=== PATIENT | female | born 1970 | race American Indian/Alaskan Native ===

== ENCOUNTER 2017-06-12 14:39 | Inpatient (IN) | payer BC ==
[2017-06-12] MEDS ORDERED: LACTATED RINGERS 500 ML IV ONE (15:59)
[2017-06-12] MEDS: CELESTONE SOLUSPAN IM SCH (16:00)
[2017-06-12] MEDS ORDERED: COLACE PO PRN (16:13)
[2017-06-12] MEDS ORDERED: AMBIEN PO PRN (16:13)
[2017-06-12] MEDS ORDERED: ZOFRAN IV PRN (16:13)
[2017-06-12] MEDS ORDERED: TYLENOL PO PRN (16:13)
--- NOTE | 2017-06-12 16:23 | History and Physical Report ---
History of Present Illness Date of examination: 06/12/17 (pt sent over from [facility] office; received call from Dr.Yeagley nasra Zaragoza in their office) History of present illness: EDC Calculations LMP: 08/06/2017 Past History : 8 Para: 5 Aborta: 2 Elect. Ab: 1 Spont. Ab: 1 # 1 Delivery date: 1986 Delivery type: EAB # 2 Delivery date: 11/09/1989 Weeks Gestation: 39 Delivery type: Anesthesia type: none Delivery location: [place] [facility] Sex: Female weight: 6-6 Name: Giselle # 3 Delivery date: 03/13/1996 Weeks Gestation: 39 labor: no Delivery type: Hours of labor: 12 Anesthesia type: epidural Delivery location: [place] Sex: Female weight: 7-3 Name: Gabriel # 4 Delivery date: 10/25/1999 Weeks Gestation: 40 labor: no Delivery type: Hours of labor: 7 Anesthesia type: epidural Delivery location: [place] [facility] Sex: Female weight: 7-7 Name: Erica # 5 Delivery date: 06/06/2001 Weeks Gestation: 38 Delivery type: Hours of labor: 10 Anesthesia type: epidural Delivery location: [place] [facility] Sex: Male weight: 8-0 Name: Comments: SROM NRFHT # 6 Delivery date: 10/27/2009 Weeks Gestation: 37 Delivery type: Anesthesia type: spinal Delivery location: [facility] Sex: Female weight: 7-6 Name: Mishel Comments: elevated BP # 7 Delivery date: 05/29/2016 Delivery type: SAB Comments: No D&C Past Medical History: Anxiety Asthma Colon Cancer (06/2016) s/p 2 rons of chemotherapy 07/2016 and 08/2016 Past Surgical History: D&C: (1986) (2000) (2009) Family History Summary: Other family member - Has No Family History of Colon Cancer - Entered On: 2016 Other family member - Has No Family History of Breast Cancer - Entered On: 2016 Other family member - Has Family History of Stomach Cancer - Entered On: 2016 Other family member - Has Family History of Prostate Cancer - Entered On: 2016 Other family member - Has Family History of Hypertension - Entered On: 12/17/2016 Other family member - Has Family History of Diabetes - Entered On: 12/17/2016 Social History: Patient is [facility] Risk Factors: Smoked Tobacco Use: Never smoker Drug use: no Alcohol use: yes Drinks per day: social Dietary Counseling: pn yes Past Medical History 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 of genital herpes: no Partner hx. of genital herpes: no Genetic History ADVANCED MATERNAL AGE Congenital Heart Defect: Mom: no Dad: no Burton Disease: Mom: no Dad: no Thalassemia Mom: no Dad: no Neural Tube Defect Mom: no Dad: no Down's Syndrome Mom: no Dad: no Fran-Sachs Mom: no Dad: no Sickle Cell Disease/Trait Mom: no Dad: no Hemophilia Mom: no Dad: no Muscular Dystrophy Mom: no Dad: no Cystic Fibrosis Mom: no Dad: no [place] Chorea Mom: no Dad: no Mental Retardation Mom: no Dad: no Fragile X Mom: no Dad: no Other Genetic/Chromosomal Disorder Mom: no Dad: no Child w/other defect Mom: no Dad: no Enviromental Exposures Xray Exposure: no Active Medications (reviewed today): SILYMARIN ORAL CAPS (MILK THISTLE-TURMERIC) ALBUTEROL SULFATE 1.25 MG/3ML INH NEBU (ALBUTEROL SULFATE) ONE DAILY TABS ( VIT-FE FUMARATE-FA TABS) ALEVE TABS (NAPROXEN SODIUM TABS) Current Allergies (reviewed today): No known allergies Laboratory Results Date/Time Collected: 12/17/2016 Routine Urinalysis Protein: Negative Glucose: Negative Urine HCG: positive Review of Systems General Complains of fatigue. Denies fever, chills, sweats, anorexia, weakness, malaise, weight loss and sleep disorder. Complains of abnormal vaginal bleeding and pelvic pain. Denies vaginal discharge, incontinence, dysuria, hematuria, urinary frequency, amenorrhea, menorrhagia, genital sores, decreased libido, painful periods, painful sex, urinary urgency, hot flashes, vaginal dryness, vaginal itching and vaginal odor. CV Denies chest pains, palpitations, syncope, dyspnea on exertion, orthopnea, PND and peripheral edema. Resp Denies cough, dyspnea at rest, excessive sputum, hemoptysis, wheezing and pleurisy. GI Complains of nausea. Denies vomiting, diarrhea, constipation, change in bowel habits, abdominal pain, melena, hematochezia, jaundice, gas/bloating, indigestion/heartburn, dysphagia and odynophagia. Breast Complains of breast pain. Denies left breast lump, right breast lump, nipple discharge, bloody discharge from nipple, abnormal mammogram and breast enlargement. Psych Denies depression, anxiety, irritability and mood swings. PHYSICAL EXAM HEENT: normocephalic, no lesions or deformities Neck/Thyroid: supple, thyroid normal Skin no significant abnormal lesions or rashes Chest: respiratory effort normal, clear to auscultation Breasts: skin/areolae normal, no masses, no nipple discharge, no erythema/warmth /tenderness, and axillae normal. CV: regular, normal S1-S2, no murmur, no rub, no gallop Abdomen: obese normal bowel sounds, soft, nontender, no HSM Well healed pfannenstiel scar Musculoskeletal: grossly normal ROM in joints, no joint tenderness or muscle weakness Neuro: no gross anomalities Extremities: no clubbing, cyanosis, or edema Past History - Obstetrical History Expected Date of Delivery: 08/07/17 Actual Gestation: 32 Week(s) 0 Day(s) : 8 Para: 5 Hx # Term Pregnancies: 5 Induced : 2 Number of Living Children: 5 Medications and Allergies Allergies Allergy/AdvReac Type Severity Reaction Status Date / Time No Known Allergies Allergy Unverified 06/12/17 14:40 Active Meds: Active Medications Acetaminophen (Tylenol) 650 mg PO Q4H PRN PRN Reason: Pain MILD(1-3)/Fever >100.5/RODAS Docusate Sodium (Colace) 100 mg PO Q12H PRN PRN Reason: Constipation Hydralazine HCl (Apresoline) 5 mg IV Q30MIN PRN PRN Reason: Hypertension Lactated Ringer's (Lactated Ringers) 500 mls @ 999 mls/hr IV BOLUS ONE Stop: 06/12/17 16:29 Lactated Ringer's (Lactated Ringers) 1,000 mls @ 125 mls/hr IV DIRECT ALEX Labetalol HCl (Normodyne) 200 mg PO BID ALEX Multivitamins/Iron/Calcium ( Vitamin) 1 each PO QDAY [facility] Ondansetron HCl (Zofran) 4 mg IV Q6H PRN PRN Reason: Nausea And Vomiting Zolpidem Tartrate (Ambien) 10 mg PO ONCE PRN PRN Reason: Sleep - Vital Signs Vital signs: Vital Signs Temp Resp 97.7 F 18 06/12/17 15:40 06/12/17 15:40 Temp Pulse Resp BP Pulse Ox 97.7 F 83 18 159/91 06/12/17 15:40 06/12/17 16:08 06/12/17 15:40 06/12/17 16:08 - Physical Exam Breasts: Positive: deferred Cardiovascular: Regular rate, Normal S1, Normal S2 Lungs: Positive: Normal air movement Abdomen: Positive: normal appearance, soft, normal bowel sounds. Negative: distention, tenderness Genitourinary (Female): Positive: normal external genitalia Vulva: both: normal Vagina: Positive: normal moisture. Negative: discharge Cervix: Negative: lesion, discharge Uterus: Positive: normal size, normal contour Adnexa: both: normal Anus/Rectum: Positive: normal perianal skin, heme negative. Negative: rectal mass, hemorrhoids Extremities: Positive: edema Deep Tendon Reflex Grade: Normal but brisk +3 - Obstetrical FHR: category 1 Uterine Contraction Pattern: Absent Uterine Tone Measurement Phase: Resting Results Result Diagrams: 06/12/17 16:10 06/12/17 16:10 All other labs normal. HBsAg Screen Negative Negative *1 Rubella Antibodies, IgG 8.07 index Immune >0.99 *2 Non-immune <0.90 Equivocal 0.90 - 0.99 Immune >0.99 ABO Grouping A *3 Rh Factor Positive *4 Please note: Prior records for this patient's ABO / Rh type are not available for additional verification. Antibody Screen Negative Negative *5 RPR Non Reactive Non Reactive *6 WBC 6.8 x10E3/uL 3.4-10.8 *7 RBC [L] 3.71 x10E6/uL 3.77-5.28 *8 Hemoglobin [L] 10.1 g/dL 11.1-15.9 *9 Hematocrit [L] 32.1 % 34.0-46.6 *10 MCV 87 fL 79-97 *11 MCH 27.2 pg 26.6-33.0 *12 MCHC 31.5 g/dL 31.5-35.7 *13 RDW [H] 15.5 % 12.3-15.4 *14 Platelets [H] 381 x10E3/uL 150-379 *15 Neutrophils 66 % *16 Lymphs 26 % *17 Monocytes 7 % *18 Eos 1 % *19 Basos 0 % *20 ! Immature Cells <No Reported Value> *21 Neutrophils (Absolute) 4.5 x10E3/uL 1.4-7.0 *22 Lymphs (Absolute) 1.8 x10E3/uL 0.7-3.1 *23 Monocytes(Absolute) 0.5 x10E3/uL 0.1-0.9 *24 Eos (Absolute) 0.1 x10E3/uL 0.0-0.4 *25 Baso (Absolute) 0.0 x10E3/uL 0.0-0.2 *26 ! Immature Granulocytes 0 % *27 ! Immature Grans (Abs) 0.0 x10E3/uL 0.0-0.1 *28 ! NRBC <No Reported Value> *29 Hematology Comments: <No Reported Value> *30 Tests: (2) Cystic Fibrosis Profile (487026) ! CF, Screen Comment: *31 RESULTS: Negative for 32 mutations analyzed Tests: (3) HB Solu + Rflx [facility] ([id number]) Hemoglobin (Hgb) Solubility Negative Negative *33 Tests: (4) Panel 953443 ([id number]) HIV Screen 4th Generation wRfx Non Reactive Non Reactive *34 Tests: (5) HCV Ab w/Rflx to Verification ([id number]) ! HCV Ab 0.2 s/co ratio 0.0-0.9 *35 Tests: (6) Comment: ([id number]) ! Comment: SPRCS *36 Non reactive HCV antibody screen is consistent with no HCV infection, unless recent infection is suspected or other evidence exists to indicate HCV infection. Assessment and Plan - Patient Problems (1) Hypertension, essential, complicating Onset Date: ~06/12/17 Current Visit: Yes Status: Acute Qualifiers: Trimester: third trimester Qualified Code(s): O10.013 - Pre-existing essential hypertension complicating , third trimester Plan to address problem: Pt sent from [facility] for evaluation of elevated BPs Pt to be admitted overnight to collect 24hr urine and has Labetalol 200mg po BID Apresoline for BP >160/100. aware of pt and agrees with POC (2) 32 weeks gestation of Onset Date: ~06/12/17 Current Visit: Yes Status: Acute Plan to address problem: 46yo @ 32 weeks with essential htn Being evaled for PreE Steroids ordered Start now second dose 24 hours Consult placed for [facility] Pt agrees with this POC All questions addressed
[2017-06-12 16:27] LABS: Hematocrit 30.8 % (30.3-42.9); Hemoglobin 10.3 gm/dl (10.1-14.3); Mean Corpuscular HGB Conc 33 % (30-34); Mean Corpuscular Hemoglobin 30 pg (28-32); Mean Corpuscular Volume 88 fl (79-97); Platelet Count 280 K/mm3 (140-440); Red Blood Count 3.49 M/mm3 (3.65-5.03); Red Cell Distribution Width 15.2 % (13.2-15.2); White Blood Count 6.5 K/mm3 (4.5-11.0)
[2017-06-12 16:36] LABS: Bacteria,Urine 1+ /HPF (Negative); Bilirubin,Urine NEG (Negative); Blood,Urine NEG (Negative); Ketones,Urine 20 mg/dL (Negative); Leukocyte Esterase,Urine MOD (Negative); Mucus,Urine FEW /HPF; Nitrite,Urine NEG (Negative); Renal Epithelial Cells,Urine 1 /LPF; Urobilinogen,Urine < 2.0 mg/dL (<2.0)
[2017-06-12 16:46] LABS: Alanine Aminotransferase 34 units/L (7-56); Lactate Dehydrogenase 177 units/L (91-180); Uric Acid 5.5 mg/dL (3.5-7.6)
[2017-06-12] MEDS: APRESOLINE IV PRN (17:01)
[2017-06-12] MEDS: LACTATED RINGERS 1,000 ML IV SCH (17:03)
[2017-06-12] MEDS: NORMODYNE PO SCH (21:51)
[2017-06-13] MEDS: APRESOLINE IV PRN (04:41)
--- NOTE | 2017-06-13 08:17 | Consultation ---
Past History - Obstetrical History : 8 Medications and Allergies Allergies Allergy/AdvReac Type Severity Reaction Status Date / Time No Known Allergies Allergy Unverified 06/12/17 14:40 Active Meds: Active Medications Acetaminophen (Tylenol) 650 mg PO Q4H PRN PRN Reason: Pain MILD(1-3)/Fever >100.5/RODAS Betamethasone Acet/Betameth SodPhos (Cel[place] Soluspan) 12 mg IM Q24H ALEX Stop: 06/13/17 18:01 Last Admin: 06/12/17 16:00 Dose: 12 mg Docusate Sodium (Colace) 100 mg PO Q12H PRN PRN Reason: Constipation Hydralazine HCl (Apresoline) 5 mg IV Q30MIN PRN PRN Reason: Hypertension Last Admin: 06/13/17 04:41 Dose: 5 mg Lactated Ringer's (Lactated Ringers) 1,000 mls @ 125 mls/hr IV DIRECT ALEX Last Admin: 06/12/17 17:03 Dose: 125 mls/hr Labetalol HCl (Normodyne) 200 mg PO BID [facility] Last Admin: 06/12/17 21:51 Dose: 200 mg Multivitamins/Iron/Calcium ( Vitamin) 1 each PO QDAY ALEX Ondansetron HCl (Zofran) 4 mg IV Q6H PRN PRN Reason: Nausea And Vomiting Zolpidem Tartrate (Ambien) 10 mg PO ONCE PRN PRN Reason: Sleep Last Admin: 06/12/17 21:51 Dose: 10 mg - Vital Signs Vital signs: Vital Signs Temp Resp 97.7 F 18 06/12/17 15:40 06/12/17 15:40 Temp Pulse Resp BP Pulse Ox 97.2 F L 90 20 157/79 96 06/13/17 07:56 06/13/17 08:18 06/13/17 07:56 06/13/17 08:03 06/13/17 08:18 Results Result Diagrams: 06/12/17 16:10 06/12/17 16:10 Abnormal lab results 06/12/17 06/12/17 06/12/17 Range/Units 15:50 16:10 16:10 RBC 3.49 L (3.65-5.03) M/mm3 Creatinine 0.6 L (0.7-1.2) mg/dL Urine WBC (Auto) 26.0 H (0.0-6.0) /HPF U Epithel Cells (Auto) 27.0 H (0-13.0) /HPF All other labs normal. Assessment and Plan [facility] Pt seen for consult Report to follow FW
[2017-06-13] MEDS ORDERED: PROAIR IH PRN (08:38)
--- NOTE | 2017-06-13 08:38 | Progress Note ---
Assessment and Plan - Patient Problems (1) Hypertension, essential, complicating Onset Date: ~06/12/17 Current Visit: Yes Status: Acute Qualifiers: Trimester: third trimester Qualified Code(s): O10.013 - Pre-existing essential hypertension complicating , third trimester Plan to address problem: ongoing 24hr urine Results pending completion Pt seen by AMFM this AM (2) 32 weeks gestation of Onset Date: ~06/12/17 Current Visit: Yes Status: Acute Plan to address problem: Pt has received Hydralizine X 1 dose over night BP now 130-140/70-80 Will continue Labetalol 200mg po BID P: pending completion and results of 24hr urine Continue POC Subjective - Subjective Date of service: 06/13/17 (Resting w/o complaint) Principal diagnosis: IUP @ 32w1d; ?PreE Interval history: EDC Calculations LMP: 08/06/2017 Past History : 8 Para: 5 Aborta: 2 Elect. Ab: 1 Spont. Ab: 1 # 1 Delivery date: 1986 Delivery type: EAB # 2 Delivery date: 11/09/1989 Weeks Gestation: 39 Delivery type: Anesthesia type: none Delivery location: [place] Sex: Female weight: 6-6 Name: Giselle # 3 Delivery date: 03/13/1996 Weeks Gestation: 39 labor: no Delivery type: Hours of labor: 12 Anesthesia type: epidural Delivery location: [place] Sex: Female weight: 7-3 Name: Gabriel # 4 Delivery date: 10/25/1999 Weeks Gestation: 40 labor: no Delivery type: Hours of labor: 7 Anesthesia type: epidural Delivery location: [place] Infant Sex: Female weight: 7-7 Name: Erica # 5 Delivery date: 06/06/2001 Weeks Gestation: 38 Delivery type: Hours of labor: 10 Anesthesia type: epidural Delivery location: [place] Sex: Male weight: 8-0 Name: Comments: SROM NRFHT # 6 Delivery date: 10/27/2009 Weeks Gestation: 37 Delivery type: Anesthesia type: spinal Delivery location: [facility] Infant Sex: Female weight: 7-6 Name: Mishel Comments: elevated BP # 7 Delivery date: 05/29/2016 Delivery type: SAB Comments: No D&C Past Medical History: Anxiety Asthma Colon Cancer (06/2016) s/p 2 rons of chemotherapy 07/2016 and 08/2016 Past Surgical History: D&C: (1986) (2000) (2009) Family History Summary: Other family member - Has No Family History of Colon Cancer - Entered On: 2016 Other family member - Has No Family History of Breast Cancer - Entered On: 2016 Other family member - Has Family History of Stomach Cancer - Entered On: 2016 Other family member - Has Family History of Prostate Cancer - Entered On: 2016 Other family member - Has Family History of Hypertension - Entered On: 12/17/2016 Other family member - Has Family History of Diabetes - Entered On: 12/17/2016 Social History: Patient is [facility] Risk Factors: Smoked Tobacco Use: Never smoker Drug use: no Alcohol use: yes Drinks per day: social Dietary Counseling: pn yes Past 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 of genital herpes: no Partner hx. of genital herpes: no Genetic History ADVANCED MATERNAL AGE Congenital Heart Defect: Mom: no Dad: no Burton Disease: Mom: no Dad: no Thalassemia Mom: no Dad: no Neural Tube Defect Mom: no Dad: no Down's Syndrome Mom: no Dad: no Fran-Sachs Mom: no Dad: no Sickle Cell Disease/Trait Mom: no Dad: no Hemophilia Mom: no Dad: no Muscular Dystrophy Mom: no Dad: no Cystic Fibrosis Mom: no Dad: no [place] Chorea Mom: no Dad: no Mental Retardation Mom: no Dad: no Fragile X Mom: no Dad: no Other Genetic/Chromosomal Disorder Mom: no Dad: no Child w/other defect Mom: no Dad: no Enviromental Exposures Xray Exposure: no Active Medications (reviewed today): SILYMARIN ORAL CAPS (MILK THISTLE-TURMERIC) ALBUTEROL SULFATE 1.25 MG/3ML INH NEBU (ALBUTEROL SULFATE) ONE DAILY TABS ( VIT-FE FUMARATE-FA TABS) ALEVE TABS (NAPROXEN SODIUM TABS) Current Allergies (reviewed today): No known allergies Laboratory Results Date/Time Collected: 12/17/2016 Routine Urinalysis Protein: Negative Glucose: Negative Urine HCG: positive Review of Systems General Complains of fatigue. Denies fever, chills, sweats, anorexia, weakness, malaise, weight loss and sleep disorder. Complains of abnormal vaginal bleeding and pelvic pain. Denies vaginal discharge, incontinence, dysuria, hematuria, urinary frequency, amenorrhea, menorrhagia, genital sores, decreased libido, painful periods, painful sex, urinary urgency, hot flashes, vaginal dryness, vaginal itching and vaginal odor. CV Denies chest pains, palpitations, syncope, dyspnea on exertion, orthopnea, PND and peripheral edema. Resp Denies cough, dyspnea at rest, excessive sputum, hemoptysis, wheezing and pleurisy. GI Complains of nausea. Denies vomiting, diarrhea, constipation, change in bowel habits, abdominal pain, melena, hematochezia, jaundice, gas/bloating, indigestion/heartburn, dysphagia and odynophagia. Breast Complains of breast pain. Denies left breast lump, right breast lump, nipple discharge, bloody discharge from nipple, abnormal mammogram and breast enlargement. Psych Denies depression, anxiety, irritability and mood swings. PHYSICAL EXAM HEENT: normocephalic, no lesions or deformities Neck/Thyroid: supple, thyroid normal Skin no significant abnormal lesions or rashes Chest: respiratory effort normal, clear to auscultation Breasts: skin/areolae normal, no masses, no nipple discharge, no erythema/warmth /tenderness, and axillae normal. CV: regular, normal S1-S2, no murmur, no rub, no gallop Abdomen: obese normal bowel sounds, soft, nontender, no HSM Well healed pfannenstiel scar Musculoskeletal: grossly normal ROM in joints, no joint tenderness or muscle weakness Neuro: no gross anomalities Extremities: no clubbing, cyanosis, or edema Patient reports: movement normal Objective - Vital Signs Vital Signs: Vital Signs - 12hr 06/12/17 06/12/17 06/12/17 21:31 21:51 21:53 Temperature Pulse Rate 81 82 82 Respiratory Rate Blood Pressure 157/75 159/73 159/73 Blood Pressure [Right] O2 Sat by Pulse Oximetry 06/12/17 06/12/17 06/12/17 22:32 23:31 23:48 Temperature Pulse Rate 82 82 85 Respiratory Rate Blood Pressure 126/61 140/84 Blood Pressure [Right] O2 Sat by Pulse 98 Oximetry 06/12/17 06/13/17 06/13/17 23:51 00:32 02:21 Temperature 98.0 F Pulse Rate 92 H 90 84 Respiratory 18 Rate Blood Pressure 158/85 154/80 Blood Pressure 158/85 [Right] O2 Sat by Pulse 98 95 Oximetry 06/13/17 06/13/17 06/13/17 02:26 02:29 02:31 Temperature Pulse Rate 92 H 90 88 Respiratory Rate Blood Pressure Blood Pressure [Right] O2 Sat by Pulse 98 91 94 Oximetry 06/13/17 06/13/17 06/13/17 02:32 02:36 02:41 Temperature Pulse Rate 92 H 92 H 87 Respiratory Rate Blood Pressure 155/74 Blood Pressure [Right] O2 Sat by Pulse 95 93 Oximetry 06/13/17 06/13/17 06/13/17 02:46 02:51 02:56 Temperature Pulse Rate 88 88 94 H Respiratory Rate Blood Pressure Blood Pressure [Right] O2 Sat by Pulse 92 92 91 Oximetry 06/13/17 06/13/17 06/13/17 03:01 03:03 03:06 Temperature Pulse Rate 95 H 93 H 85 Respiratory Rate Blood Pressure Blood Pressure [Right] O2 Sat by Pulse 96 94 94 Oximetry 06/13/17 06/13/17 06/13/17 03:08 03:11 03:14 Temperature Pulse Rate 85 84 85 Respiratory Rate Blood Pressure Blood Pressure [Right] O2 Sat by Pulse 94 96 94 Oximetry 06/13/17 06/13/17 06/13/17 03:16 03:20 03:21 Temperature Pulse Rate 84 84 83 Respiratory Rate Blood Pressure Blood Pressure [Right] O2 Sat by Pulse 94 94 95 Oximetry 06/13/17 06/13/17 06/13/17 03:25 03:26 03:30 Temperature Pulse Rate 86 83 87 Respiratory Rate Blood Pressure Blood Pressure [Right] O2 Sat by Pulse 94 94 94 Oximetry 06/13/17 06/13/17 06/13/17 03:31 03:32 03:36 Temperature Pulse Rate 85 86 84 Respiratory Rate Blood Pressure 157/77 Blood Pressure [Right] O2 Sat by Pulse 92 96 Oximetry 06/13/17 06/13/17 06/13/17 03:40 03:41 03:46 Temperature Pulse Rate 86 84 84 Respiratory Rate Blood Pressure Blood Pressure [Right] O2 Sat by Pulse 94 96 95 Oximetry 06/13/17 06/13/17 06/13/17 03:49 03:51 03:56 Temperature Pulse Rate 85 85 85 Respiratory Rate Blood Pressure Blood Pressure [Right] O2 Sat by Pulse 94 95 94 Oximetry 06/13/17 06/13/17 06/13/17 04:01 04:06 04:11 Temperature Pulse Rate 84 83 82 Respiratory Rate Blood Pressure Blood Pressure [Right] O2 Sat by Pulse 94 95 95 Oximetry 06/13/17 06/13/17 06/13/17 04:15 04:16 04:21 Temperature 98.1 F Pulse Rate 84 82 94 H Respiratory 22 Rate Blood Pressure 160/81 Blood Pressure [Right] O2 Sat by Pulse 94 95 96 Oximetry 06/13/17 06/13/17 06/13/17 04:26 04:31 04:36 Temperature Pulse Rate 84 94 H 85 Respiratory Rate Blood Pressure 161/89 Blood Pressure [Right] O2 Sat by Pulse 97 94 97 Oximetry 06/13/17 06/13/17 06/13/17 04:41 04:46 04:51 Temperature Pulse Rate 87 89 93 H Respiratory Rate Blood Pressure 166/95 Blood Pressure [Right] O2 Sat by Pulse 97 97 98 Oximetry 06/13/17 06/13/17 06/13/17 04:52 04:56 04:58 Temperature Pulse Rate 98 H 95 H 92 H Respiratory Rate Blood Pressure 172/105 147/80 Blood Pressure [Right] O2 Sat by Pulse 93 96 94 Oximetry 06/13/17 06/13/17 06/13/17 05:01 05:06 05:07 Temperature Pulse Rate 94 H 89 88 Respiratory Rate Blood Pressure 137/71 143/73 Blood Pressure [Right] O2 Sat by Pulse 95 97 93 Oximetry 06/13/17 06/13/17 06/13/17 05:11 05:13 05:16 Temperature Pulse Rate 91 H 91 H 91 H Respiratory Rate Blood Pressure 130/70 Blood Pressure [Right] O2 Sat by Pulse 97 92 100 Oximetry 06/13/17 06/13/17 06/13/17 05:21 05:32 05:37 Temperature Pulse Rate 100 H 93 H 89 Respiratory Rate Blood Pressure Blood Pressure [Right] O2 Sat by Pulse 98 100 100 Oximetry 06/13/17 06/13/17 06/13/17 05:42 05:44 05:46 Temperature Pulse Rate 94 H 101 H 90 Respiratory Rate Blood Pressure 141/80 Blood Pressure [Right] O2 Sat by Pulse 100 92 Oximetry 06/13/17 06/13/17 06/13/17 05:47 05:52 05:53 Temperature Pulse Rate 88 88 87 Respiratory Rate Blood Pressure Blood Pressure [Right] O2 Sat by Pulse 100 100 0 L Oximetry 06/13/17 06/13/17 06/13/17 05:57 05:58 06:02 Temperature Pulse Rate 93 H 91 H 91 H Respiratory Rate Blood Pressure 156/70 Blood Pressure [Right] O2 Sat by Pulse 100 0 L 32 L Oximetry 06/13/17 06/13/17 06/13/17 06:06 06:07 06:12 Temperature Pulse Rate 94 H 89 94 H Respiratory Rate Blood Pressure Blood Pressure [Right] O2 Sat by Pulse 0 L 100 100 Oximetry 06/13/17 06/13/17 06/13/17 06:14 06:16 06:17 Temperature Pulse Rate 90 91 H 91 H Respiratory Rate Blood Pressure 151/68 Blood Pressure [Right] O2 Sat by Pulse 90 100 Oximetry 06/13/17 06/13/17 06/13/17 06:20 06:22 06:27 Temperature Pulse Rate 95 H 94 H 91 H Respiratory Rate Blood Pressure Blood Pressure [Right] O2 Sat by Pulse 94 99 100 Oximetry 06/13/17 06/13/17 06/13/17 06:31 06:32 06:37 Temperature Pulse Rate 82 88 86 Respiratory Rate Blood Pressure 136/84 Blood Pressure [Right] O2 Sat by Pulse 75 L 99 100 Oximetry 06/13/17 06/13/17 06/13/17 06:42 06:44 06:47 Temperature Pulse Rate 89 48 L 94 H Respiratory Rate Blood Pressure 138/74 Blood Pressure [Right] O2 Sat by Pulse 99 93 98 Oximetry 06/13/17 06/13/17 06/13/17 06:52 06:57 07:00 Temperature Pulse Rate 95 H 93 H 93 H Respiratory Rate Blood Pressure 135/76 Blood Pressure [Right] O2 Sat by Pulse 100 96 Oximetry 06/13/17 06/13/17 06/13/17 07:02 07:08 07:13 Temperature Pulse Rate 92 H 91 H 88 Respiratory Rate Blood Pressure Blood Pressure [Right] O2 Sat by Pulse 100 100 98 Oximetry 06/13/17 06/13/17 06/13/17 07:17 07:18 07:23 Temperature Pulse Rate 88 89 92 H Respiratory Rate Blood Pressure 142/63 Blood Pressure [Right] O2 Sat by Pulse 100 100 Oximetry 06/13/17 06/13/17 06/13/17 07:28 07:32 07:33 Temperature Pulse Rate 89 93 H 99 H Respiratory Rate Blood Pressure 149/76 Blood Pressure [Right] O2 Sat by Pulse 100 100 Oximetry 06/13/17 06/13/17 06/13/17 07:38 07:43 07:46 Temperature Pulse Rate 95 H 101 H 92 H Respiratory Rate Blood Pressure 131/72 Blood Pressure [Right] O2 Sat by Pulse 100 100 Oximetry 06/13/17 06/13/17 06/13/17 07:48 07:53 07:56 Temperature 97.2 F L Pulse Rate 96 H 89 89 Respiratory 20 Rate Blood Pressure Blood Pressure 157/79 [Right] O2 Sat by Pulse 100 97 98 Oximetry 06/13/17 06/13/17 06/13/17 07:58 08:03 08:08 Temperature Pulse Rate 97 H 93 H 90 Respiratory Rate Blood Pressure 157/79 Blood Pressure [Right] O2 Sat by Pulse 98 97 97 Oximetry 06/13/17 06/13/17 06/13/17 08:13 08:18 08:23 Temperature Pulse Rate 91 H 90 91 H Respiratory Rate Blood Pressure Blood Pressure [Right] O2 Sat by Pulse 97 96 98 Oximetry 06/13/17 06/13/17 08:28 08:33 Temperature Pulse Rate 90 91 H Respiratory Rate Blood Pressure Blood Pressure [Right] O2 Sat by Pulse 97 98 Oximetry - Exam Breasts: deferred Cardiovascular: Regular rate Lungs: Normal air movement Abdomen: Present: normal appearance, soft. Absent: distention, tenderness Uterus: Present: normal FHR: auscultation normal, category 1 Uterine Contraction Monitor Mode: External Uterine Contraction Pattern: Absent Uterine Tone Measurement Phase: Resting Extremities: edema Deep Tendon Reflex Grade: Normal but brisk +3 - Labs Labs: Abnormal Labs 06/12/17 06/12/17 06/12/17 15:50 16:10 16:10 RBC 3.49 L Creatinine 0.6 L Urine WBC (Auto) 26.0 H U Epithel Cells (Auto) 27.0 H Laboratory Results - last 24 hr 06/12/17 06/12/17 06/12/17 15:50 16:10 16:10 WBC 6.5 RBC 3.49 L Hgb 10.3 Hct 30.8 MCV 88 MCH 30 MCHC 33 RDW 15.2 Plt Count 280 Creatinine 0.6 L Estimated GFR > 60 POC Glucose Uric Acid 5.5 AST 25 ALT 34 Lactate Dehydrogenase 177 Urine Color [place] Urine Turbidity Clear Urine pH 6.0 Ur Specific [place] 1.015 Urine Protein 30 mg/dl Urine Glucose (UA) Neg Urine Ketones 20 Urine Blood Neg Urine Nitrite Neg Urine Bilirubin Neg Urine Urobilinogen < 2.0 Ur Leukocyte Esterase Mod Urine WBC (Auto) 26.0 H Urine RBC (Auto) 15.0 U Epithel Cells (Auto) 27.0 H Urine Bacteria (Auto) 1+ Ur Renal Epithelial Cell 1 Urine Mucus Few Blood Type Antibody Screen 06/12/17 06/12/17 16:59 17:00 WBC RBC Hgb Hct MCV MCH MCHC RDW Plt Count Creatinine Estimated GFR POC Glucose 71 Uric Acid AST ALT Lactate Dehydrogenase Urine Color Urine Turbidity Urine pH Ur Specific [place] Urine Protein Urine Glucose (UA) Urine Ketones Urine Blood Urine Nitrite Urine Bilirubin Urine Urobilinogen Ur Leukocyte Esterase Urine WBC (Auto) Urine RBC (Auto) U Epithel Cells (Auto) Urine Bacteria (Auto) Ur Renal Epithelial Cell Urine Mucus Blood Type A POSITIVE Antibody Screen Negative
[2017-06-13] MEDS: NORMODYNE PO SCH (09:03)
[2017-06-13] MEDS ORDERED: PROVENTIL IH PRN (09:05)
[2017-06-13] MEDS ORDERED: LACTATED RINGERS 1,000 ML IV ONE (09:12)
[2017-06-13] MEDS ORDERED: PRENATAL VITAMIN PO SCH (10:00)
--- NOTE | 2017-06-13 17:41 | Discharge Summary ---
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 Results 297TP BPs normalized and stable on Labetalol 200mg po BID Pt request d/c agrees with out pt mgt. Pt has RX and has appt with [facility] next week Will make appt with OB office for Saturday BP 130-140/70-80 32weeks Elevated BP Condition at discharge: Good Disposition: DC-01 TO HOME OR SELFCARE - Discharge Diagnoses (1) Hypertension, essential, complicating Status: Acute Qualifiers: Trimester: third trimester Qualified Code(s): O10.013 - Pre-existing essential hypertension complicating , third trimester Comment: f/u OB office Saturday take Labetalol 200mg po BID as prescribed (2) 32 weeks gestation of Status: Acute Comment: pt aware she is off from work until after delivery Plan - Discharge Medications Prescriptions: Labetalol [Normodyne TAB] 200 mg PO BID #60 tablet - Provider Discharge Summary Activity: routine, no sex for 6 weeks, no heavy lifting 4 weeks, no strenuous exercise Diet: other (no salt) Instructions: other (homebound) Additional instructions: [] Smoking cessation referral if applicable(refer to patient education folder for contact #) [] Refer to [facility] Booklet Call your doctor immediately for: * Fever > 100.5 * Heavy vaginal bleeding ( >1 pad per hour) * Severe persistent headache * Shortness of breath * Reddened, hot, painful area to leg or breast * Drainage or odor from incision. * Keep incision clean and dry at all times and follow doctor's instructions regarding bathing/showering - Follow up plan Follow up: PRIMARY CARE,MD [Primary Care Provider] - 7 Days DEMETRIS CLINE CNM [Advanced Practice Nurse] - 06/17/17 10:15 am (Call with any headache not relieved with Tylenol, blurred vision, chest pain. Take medications as prescribed. Keep appt scheduled for Saturday06-17-17 @ 1015. [phone])
[2017-06-13 17:51] VITALS: BP 141/69
[2017-06-13] MEDS: LACTATED RINGERS 1,000 ML IV SCH (17:57)
[2017-06-13] MEDS: CELESTONE SOLUSPAN IM SCH (17:58)
== END 2017-06-13 18:35 | disposition home or self-care (01) | DRG 781 ==
LOC: TRG 14:39 → LD 15:33 → TRG 16:25
PROVIDERS: ADMIT Obstetrics & Gynecology; ATTEND Obstetrics & Gynecology
DX: O10.013 Pre-existing essential hypertension complicating pregnancy, third trimester (principal); J45.909 Unspecified asthma, uncomplicated; O99.343 Other mental disorders complicating pregnancy, third trimester; O99.513 Diseases of the respiratory system complicating pregnancy, third trimester; O99.013 Anemia complicating pregnancy, third trimester; D64.9 Anemia, unspecified; F41.9 Anxiety disorder, unspecified; O09.523 Supervision of elderly multigravida, third trimester; Z3A.32 32 weeks gestation of pregnancy
CPT/HCPCS: 36415; 81001; 82565; 82962; 83615; 84156; 84450; 84460; 84550; 85027; 86850; 86900; 86901; J0360; J0702; J7120

== ENCOUNTER 2017-07-07 12:31 | Outpatient (CLI) | payer BC ==
[2017-07-07] MEDS ORDERED: LACTATED RINGERS 500 ML IV ONE (13:21)
[2017-07-07 14:06] VITALS: BP 158/97
--- NOTE | 2017-07-07 15:22 | Ultrasound Report ---
FINAL REPORT EXAM: US OB BPP WO NON-STRESS HISTORY: well-being TECHNIQUE: Ultrasound biophysical profile PRIORS: None. FINDINGS: Single live intrauterine gestation is present with heart rate of 157 beats per minute Biophysical profile was performed respiratory motion 2 Body movement 2 tone 2 Amniotic fluid volume 2 Total 02/19 Impression Normal biophysical profile 02/19
== END 2017-07-07 14:12 | disposition home or self-care (01) ==
LOC: TRG 12:31
PROVIDERS: ATTEND Obstetrics & Gynecology
DX: O47.03 False labor before 37 completed weeks of gestation, third trimester (principal); Z3A.35 35 weeks gestation of pregnancy
CPT/HCPCS: 59025; 76819

== ENCOUNTER 2017-07-15 10:24 | Inpatient (IN) | payer BC ==
--- NOTE | 2017-07-15 11:27 | Event Note ---
Date: 07/15/17 (pt sent to Triage for evaluation) communicated with pt has arrived today for evaluation NST,BPP,[facility] recommends weekly testing she is here today due to offices closed for holiday c/s is scheduled for Saturday Decision per to move forward today with repeat section.
[2017-07-15 12:14] LABS: Hematocrit 30.5 % (30.3-42.9); Hemoglobin 10.1 gm/dl (10.1-14.3); Mean Corpuscular HGB Conc 33 % (30-34); Mean Corpuscular Hemoglobin 29 pg (28-32); Mean Corpuscular Volume 87 fl (79-97); Platelet Count 255 K/mm3 (140-440); Red Blood Count 3.52 M/mm3 (3.65-5.03); Red Cell Distribution Width 14.6 % (13.2-15.2)
[2017-07-15 13:14] LABS: Alanine Aminotransferase 20 units/L (7-56); Uric Acid 5.6 mg/dL (3.5-7.6)
--- NOTE | 2017-07-15 13:18 | Ultrasound Report ---
ULTRASOUND BIOPHYSICAL PROFILE: History: Elevated blood pressure, hypertension, well being Technique: Transabdominal ultrasound with Doppler interrogation. 2 - breathing movements 2 - movements 2 - posture and tone 2 - Qualitative amniotic fluid volume 8 - TOTAL SCORE OF POSSIBLE 8 Heart Rate (bpm) 145
--- NOTE | 2017-07-15 13:18 | Ultrasound Report ---
ULTRASOUND OB LIMITED History: well being, hypertension Technique: Transabdominal ultrasound with Doppler interrogation. Gestation: Single Position: Transverse, head to maternal right Amniotic Fluid: Normal KYREE = 18.0 cm Heart Rate: 145 BPM
[2017-07-15] MEDS ORDERED: ANCEF/STERILE WATER 2 GM/20 ML 2 GM/20 ML SYRINGE IV NR (14:00)
[2017-07-15] MEDS ORDERED: PITOCin/NS 20 UNIT/1000ML DRIP 20 UNITS/1,000 ML BAG IV SCH (14:00)
[2017-07-15] MEDS ORDERED: REGLAN IV ONE (14:00)
[2017-07-15] MEDS ORDERED: BICITRA PO ONE (14:00)
[2017-07-15] MEDS ORDERED: PEPCID IV ONE (14:00)
[2017-07-15] MEDS: LACTATED RINGERS 1,000 ML IV SCH ×2 (14:35→16:00)
--- NOTE | 2017-07-15 16:16 | History and Physical Report ---
History of Present Illness Date of examination: 07/15/17 Date of admission: 07/15/17 14:19 Chief complaint: Severe Preeclampsia, previous c/s x2, desires sterilization. Neuroendocrine tumor(malignant) of cecum/liver History of present illness: Past History : 8 Para: 5 Aborta: 2 Elect. Ab: 1 Spont. Ab: 1 # 1 Delivery date: 1986 Delivery type: EAB # 2 Delivery date: 11/09/1989 Weeks Gestation: 39 Delivery type: Anesthesia type: none Delivery location: [place] Sex: Female weight: 6-6 Name: Giselle # 3 Delivery date: 03/13/1996 Weeks Gestation: 39 labor: no Delivery type: Hours of labor: 12 Anesthesia type: epidural Delivery location: [place] Infant Sex: Female weight: 7-3 Name: Gabriel # 4 Delivery date: 10/25/1999 Weeks Gestation: 40 labor: no Delivery type: Hours of labor: 7 Anesthesia type: epidural Delivery location: [place] Sex: Female weight: 7-7 Name: Erica # 5 Delivery date: 06/06/2001 Weeks Gestation: 38 Delivery type: Hours of labor: 10 Anesthesia type: epidural Delivery location: [place] Sex: Male weight: 8-0 Name: Comments: SROM NRFHT # 6 Delivery date: 10/27/2009 Weeks Gestation: 37 Delivery type: Anesthesia type: spinal Delivery location: [facility] Infant Sex: Female weight: 7-6 Name: Mishel Comments: elevated BP # 7 Delivery date: 05/29/2016 Delivery type: SAB Comments: No D&C Past Medical History: Anxiety Asthma Colon Cancer (06/2016) s/p 2 rons of chemotherapy 07/2016 and 08/2016 CHTN Past Surgical History: D&C: (1986) (2000) (2009) Family History Summary: Other family member - Has No Family History of Colon Cancer - Entered On: 2016 Other family member - Has No Family History of Breast Cancer - Entered On: 2016 Other family member - Has Family History of Stomach Cancer - Entered On: 2016 Other family member - Has Family History of Prostate Cancer - Entered On: 2016 Other family member - Has Family History of Hypertension - Entered On: 12/17/2016 Other family member - Has Family History of Diabetes - Entered On: 12/17/2016 Social History: Patient is [facility] Risk Factors: Smoked Tobacco Use: Never smoker Drug use: no Alcohol use: yes Drinks per day: social Dietary Counseling: pn yes Past Medical History 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 Infection History Hx of STD: none Personal hx. of genital herpes: no Partner hx. of genital herpes: no Genetic History ADVANCED MATERNAL AGE Congenital Heart Defect: Mom: no Dad: no Burton Disease: Mom: no Dad: no Thalassemia Mom: no Dad: no Neural Tube Defect Mom: no Dad: no Down's Syndrome Mom: no Dad: no Fran-Sachs Mom: no Dad: no Sickle Cell Disease/Trait Mom: no Dad: no Hemophilia Mom: no Dad: no Muscular Dystrophy Mom: no Dad: no Cystic Fibrosis Mom: no Dad: no [place] Chorea Mom: no Dad: no Mental Retardation Mom: no Dad: no Fragile X Mom: no Dad: no Other Genetic/Chromosomal Disorder Mom: no Dad: no Child w/other defect Mom: no Dad: no Enviromental Exposures Xray Exposure: no Active Medications (reviewed today): SILYMARIN ORAL CAPS (MILK THISTLE-TURMERIC) ALBUTEROL SULFATE 1.25 MG/3ML INH NEBU (ALBUTEROL SULFATE) ONE DAILY TABS ( VIT-FE FUMARATE-FA TABS) ALEVE TABS (NAPROXEN SODIUM TABS) Current Allergies (reviewed today): No known allergies Past History - Obstetrical History Expected Date of Delivery: 08/07/17 Actual Gestation: 36 Week(s) 5 Day(s) : 8 Medications and Allergies Allergies Allergy/AdvReac Type Severity Reaction Status Date / Time No Known Allergies Allergy Verified 07/15/17 10:29 Home Medications Medication Instructions Recorded Confirmed Last Taken Type Labetalol [Normodyne TAB] 200 mg PO BID #60 tablet 06/13/17 07/15/17 07/15/17 09 :12 Rx 1 Albuterol Sulfate [Ventolin Hfa] 1 inhalation INHALATION DAILY 07/15/1707/15/17 09:12 History 1 Pnv,Calcium 72/Iron/Folic Acid 1 tab PO DAILY 07/15/17 07/15/17 07/15/17 09:30 History [Preplus Ca-Fe 27 mg-FA 1 mg Tb] 1 Active Meds: Active Medications Cefazolin Sodium (Ancef/Sterile Water 2 Gm/20 Ml) 2 gm in 20 mls @ 80 mls/hr IV PREOP NR PRN Reason: Protocol Stop: 07/15/17 23:59 Lactated Ringer's (Lactated Ringers) 1,000 mls @ 2,250 mls/hr IV PREOP ALEX Stop: 07/16/17 14:27 Last Admin: 07/15/17 14:35 Dose: 2,250 mls/hr Oxytocin/Sodium Chloride (Pitocin/Ns 20 Unit/1000ml Drip) 20 units in 1,000 mls @ 0 mls/hr IV TITR ALEX PRN Reason: As Directed - Vital Signs Vital signs: Vital Signs Pulse BP 96 H 162/98 07/15/17 10:49 07/15/17 10:49 Temp Pulse Resp BP Pulse Ox 98.1 F 80 20 154/85 99 07/15/17 15:45 07/15/17 15:20 07/15/17 15:45 07/15/17 15:20 07/15/17 11:20 - Physical Exam Breasts: Positive: deferred Cardiovascular: Regular rate Lungs: Positive: Normal air movement Abdomen: Positive: normal appearance, soft Uterus: Positive: enlarged Extremities: Positive: normal - Obstetrical FHR: category 1 Uterine Contraction Pattern: Irregular Results Result Diagrams: 07/15/17 Unknown 07/15/17 Unknown Abnormal lab results 07/15/17 07/15/17 Range/Units Unknown Unknown RBC 3.52 L (3.65-5.03) M/mm3 Lactate Dehydrogenase 202 H (91-180) units/L All other labs normal. Assessment and Plan - Patient Problems (1) 36 weeks gestation of Current Visit: Yes Status: Acute (2) Preeclampsia, severe Current Visit: Yes Status: Acute (3) Neuroendocrine carcinoma of colon Current Visit: Yes Status: Chronic (4) AMA (advanced maternal age) multigravida 35+ Current Visit: No Status: Chronic (5) Hypertension, essential, complicating Onset Date: ~06/12/17 Current Visit: No Status: Chronic Qualifiers: (6) Sterilization Current Visit: Yes Status: Acute Plan to address problem: Risks of regret emphasized. Permanent and irreversible condition explained to patient. Pt verbalized understanding. Consent reviewed and signed. The risks and alternatives to this surgery were reviewed with the patient. Risk of ectopic explained. Infection precautions reviewed, pt to call for any signs or symptoms of infection.Patient given ample opportunity to have all her questions answered before signing informed consent. The usual discomforts associated with this procedure were detailed. 1% failure rate discussed. Consent was witnessed by Cristopher Nash and Tylor Jack RN. Patient states she does not want her boyfriend to know she's having her a BTL. Today her boyfriend is not currently present but she was adamant about having a tubal ligation. She was informed the whole tube will be removed bilaterally. Dr. Yeung verbally confirmed he discussed sterilization with this patient as well.
[2017-07-15] MEDS ORDERED: ZOFRAN IV PRN (16:25)
[2017-07-15] MEDS ORDERED: BENADRYL IV PRN (16:25)
[2017-07-15] MEDS ORDERED: NARCAN 0.4 MG/1 ML IV PRN ×2 (16:25→19:22)
--- NOTE | 2017-07-15 16:25 | Anesthesia Day of Surgery ---
Anesthesia Day of Surgery - Day of Surgery Patient Examined: Yes Patient H&P Reviewed: Yes Patient is NPO: Yes Beta Blockers: Yes
--- NOTE | 2017-07-15 16:25 | Anesthesia Consultation ---
Anesthesia Consult and Med Hx Date of service: 07/15/17 - Airway Anesthetic Teeth Evaluation: Good ROM Head & Neck: Adequate Mental/Hyoid Distance: Adequate Mallampati Class: Class II Intubation Access Assessment: Probably Good - Pulmonary Exam CTA: Yes - Cardiac Exam Cardiac Exam: RRR - Pre-Operative Health Status ASA Pre-Surgery Classification: ASA3, Emergency Proposed Anesthetic Plan: Epidural, Spinal - Pulmonary Hx Asthma: Yes (Albuterol, Proventil) COPD: No Hx Pneumonia: No - Cardiovascular System Hx Hypertension: Yes (pre-eclampsia) - Central Nervous System Hx Seizures: No Hx Psychiatric Problems: No - Endocrine Hx Renal Disease: No Hx End Stage Renal Disease: No Hx Hypothyroidism: No Hx Hyperthyroidism: No - Hematic Hx Anemia: No Hx Sickle Cell Disease: No - Other Systems Hx Alcohol Use: No Hx Obesity: Yes - Additional Comments Anesthesia Medical History Comments: +IUP, PREVIOUS
[2017-07-15] MEDS ORDERED: MORPHINE IV PRN ×4 (16:26→19:22)
[2017-07-15] MEDS ORDERED: TORADOL IV PRN (16:27)
[2017-07-15] MEDS ORDERED: SUBLIMAZE ONE (16:39)
[2017-07-15] MEDS ORDERED: ANCEF/STERILE WATER 2 GM/20 ML IV ONE (16:45)
[2017-07-15] MEDS ORDERED: ZOFRAN ONE (16:59)
[2017-07-15] MEDS ORDERED: SODIUM CHLORIDE FLUSH SYRINGE 10 ML IV NR ×2 (17:00→19:22)
[2017-07-15] MEDS ORDERED: WATER FOR IRRIG STERILE IR ONE (17:05)
[2017-07-15] MEDS ORDERED: NACL 0.9% IR ONE (17:05)
[2017-07-15] MEDS ORDERED: VERSED ONE (17:26)
[2017-07-15] MEDS ORDERED: XYLOCAINE MPF 2% ONE (18:00)
--- NOTE | 2017-07-15 18:30 | Post Anesthesia Evaluation ---
- Post Anesthesia Evaluation Patient Participated: Yes Airway Patent: Yes Stable Respiratory Function: Yes Nausea/Vomiting: No Temp > 96.8F: Yes Pain Manageable: Yes Adequeate Hydration: Yes Anesthesia Complications: No Patient on Ventilator: No
--- NOTE | 2017-07-15 18:37 | Operative Report ---
Operative Report Operative Report: Date: 07/15/2017 Preoperative diagnosis: 1. Intrauterine at 36 weeks 2. Severe preeclampsia 3. Previous delivery 2 4. Desires sterilization 5. Advanced maternal age 6. Body mass index 38 7. Malignant neuroendocrine tumor of the cecum and liver 8. Chronic hypertension Postoperative diagnosis: 1. Intrauterine at 36 weeks 2. Severe preeclampsia 3. Previous delivery 2 4. Desires sterilization 5. Advanced maternal age 6. Body mass index 38 7. Malignant neuroendocrine tumor of the cecum and liver 8. Chronic hypertension Procedure: 1. Low uterine transverse incision for delivery 2. Bilateral salpingectomy for sterilization Surgeon: Coni Salvador MD [employer] Consultant: Rosita Nash CNM Anesthesia: Epidural Anesthesiologist: Benito Morales M.D. Estimated blood loss: 800 mL Urine out: 250 mL Findings: Live born male infant. Weight 6 lbs. 3 oz. Apgars 8 at 1 minute and 9 at 9 minutes. Uterus enlarged due to uterine fibroids, tubes grossly normal, ovaries grossly normal. Procedure: After risk, benefits, complications, consequences and alternatives for this procedure were discussed with patient and consents were reviewed and signed, she was taken to the OR where epidural anesthesia was bolused. She was then placed in the left lateral tilt position, and prepped and draped in the usual sterile fashion. Timeout was performed, and an appropriate level of anesthesia was noted, a Pfannenstiel incision was made and extended to the fascia which was incised and extended in the lateral directions. The overlying fascia was sharply dissected away from the underlying rectus muscles in the superior and inferior directions. The midline was entered bluntly. The vesicouterine fold was incised and with blunt dissection the bladder flap was created. A transverse incision was made in the lower uterine segment and extended in superiolateral direction with finger fractionation. Clear fluid was noted. The was delivered from cephalic position. Mouth and nose were bulb suctioned. Spontaneous cry and excellent tone were noted. Cord was doubly clamped and cut. The infant was given to /resuscitation team present. The placenta was manually extracted. The uterus was then exteriorized and cleared of any further products of conception or placental tissue. The incision was reapproximated using 0 Vicryl in a running interlocking stitch. Further suture 0 Vicryl was placed in the interrupted [id number] fashion for hemostasis. Then attention was turned to the adnexa were bilateral salpingectomy was performed. Hemostasis was noted. Surgicel was placed to ensure hemostasis. Once hemostasis was noted, the uterus was allowed back into the pelvic cavity. The pelvis was irrigated with warm normal saline. Attention was turned to the adnexa with the tubes were removed. Hemostasis was noted. Again hemostasis was noted . Surgicel applied for further hemostasis. Interceed was then placed to prevent adhesions. Then attention was turned to the rectus muscles. Once hemostasis was noted, the fascia was reapproximated using 0 Vicryl running stitch fashion. Once an stasis was noted adipose tissue was reapproximated using 0 Vicryl interrupted simple stitch fashion. Once hemostasis was noted skin incision was reapproximated using 4-0 Vicryl on a Colton needle in a subcuticular manner. Counts were correct 3. Patient tolerated procedure well state recovery room in stable condition.
[2017-07-15] MEDS ORDERED: APRESOLINE IV ONE (18:58)
[2017-07-15] MEDS ORDERED: APRESOLINE ONE (19:01)
[2017-07-15] MEDS ORDERED: MILK OF MAGNESIA PO PRN (19:22)
[2017-07-15] MEDS ORDERED: ANCEF/NS 1 GM/50 ML 1 GM/50 ML BAG IV SCH (19:22)
[2017-07-15] MEDS ORDERED: MAGNESIUM SULFATE 40GM/1000ML 40 GM/1,000 ML BAG IV NR (19:22)
[2017-07-15] MEDS ORDERED: TUCKS PAD TP PRN (19:22)
[2017-07-15] MEDS ORDERED: PHENERGAN PR PRN (19:22)
[2017-07-15] MEDS ORDERED: TYLENOL PO PRN (19:22)
[2017-07-15] MEDS ORDERED: APRESOLINE IV PRN (19:22)
[2017-07-15] MEDS ORDERED: LANSINOH TP PRN (19:22)
[2017-07-15] MEDS ORDERED: TYLENOL PR PRN (19:22)
[2017-07-15] MEDS ORDERED: MYLICON PO PRN (19:22)
[2017-07-15] MEDS ORDERED: TORADOL ONE (19:34)
[2017-07-15] MEDS ORDERED: NORMODYNE IV ONE ×2 (19:35→20:11)
[2017-07-15] MEDS ORDERED: MORPHINE PCA 30MG/30ML IV SCH (20:00)
[2017-07-15] MEDS ORDERED: MAGNESIUM SULFATE 4GM/100ML 4 GM/100 ML BAG IV ONE (20:00)
[2017-07-15] MEDS ORDERED: NORMODYNE PO SCH ×2 (22:00)
[2017-07-15] MEDS: NORMODYNE PO SCH (22:00)
[2017-07-16] MEDS: ceFAZolin 1 GM in NACL 0.9% 20 ML IV SCH ×2 (03:22→10:15)
[2017-07-16] MEDS: LACTATED RINGERS 1,000 ML IV SCH ×2 (03:22→12:22)
[2017-07-16 05:56] LABS: Hematocrit 24.9 % (30.3-42.9); Hemoglobin 8.4 gm/dl (10.1-14.3)
--- NOTE | 2017-07-16 08:35 | Progress Note ---
Assessment and Plan patient resting in bed, c/o incision pain. denies RODAS, visual changes or epigastric pain. currently w/ [employer] Y[employer] SUPERVISOR for pain management. postop H&H 8.4/24.9 ( acute anemia from blood loss), lochia scant, VSSAF. Patient encouraged to use ISS 10x while awake. Continue postop pathway. - Patient Problems (1) delivery delivered Current Visit: Yes Status: Acute (2) Preeclampsia, severe Current Visit: Yes Status: Acute Qualifiers: Trimester: third trimester Qualified Code(s): O14.13 - Severe pre-eclampsia , third trimester Plan to address problem: Continue man sulfate x 24h (tonight @ 1900) Monitor b/p and for signs of worsening pre-e (3) Neuroendocrine carcinoma of colon Current Visit: Yes Status: Chronic Subjective - Subjective Date of service: 07/16/17 Principal diagnosis: postop day #1 s/p repeat c/s w/ BTL, pre-e, decreased urine output Patient reports: other (cortez to bsb, has not ambualted d/t mag sulfate. Patient c/s pain around incision. ), no flatus : doing well, nursing well Objective - Vital Signs Latest vital signs: Vital Signs Temp Pulse Resp BP BP Pulse Ox 07/16/17 06:00 98.4 F 78 18 113/69 07/16/17 04:00 98 F 83 16 132/75 07/16/17 02:25 98.3 F 78 18 123/78 07/16/17 00:00 98.5 F 77 18 127/80 07/15/17 22:00 98.2 F 83 16 124/80 07/15/17 21:00 83 18 125/77 99 07/15/17 20:58 97.6 F 07/15/17 20:55 85 17 127/72 100 07/15/17 20:51 82 27 H 127/72 99 07/15/17 20:45 87 17 130/75 100 07/15/17 20:40 91 H 26 H 139/71 98 07/15/17 20:35 85 12 138/79 99 07/15/17 20:31 86 18 138/79 99 07/15/17 20:25 85 22 138/79 99 07/15/17 20:21 87 17 138/79 100 01/01/18 20:15 89 13 150/87 100 07/15/17 20:11 90 16 150/87 100 07/15/17 20:05 90 17 157/88 100 07/15/17 20:00 89 14 147/89 100 07/15/17 19:55 87 21 157/89 100 07/15/17 19:50 88 18 147/85 100 07/15/17 19:45 89 16 153/99 100 07/15/17 19:40 94 H 14 158/94 100 07/15/17 19:35 95 H 17 172/101 100 07/15/17 19:30 93 H 18 174/95 100 07/15/17 19:25 92 H 16 176/104 100 07/15/17 19:20 88 16 170/101 100 07/15/17 19:15 79 17 172/98 100 07/15/17 19:10 78 13 172/98 100 07/15/17 19:05 78 14 171/98 100 07/15/17 19:01 71 180/93 07/15/17 19:00 71 14 179/99 100 07/15/17 18:55 69 14 166/99 100 07/15/17 18:50 70 14 166/99 100 07/15/17 18:45 74 14 156/95 100 07/15/17 18:40 73 17 156/95 100 07/15/17 18:35 71 15 168/93 99 07/15/17 18:31 74 15 143/90 99 07/15/17 18:25 97.8 F 78 17 142/89 98 07/15/17 18:22 99 07/15/17 15:45 98.1 F 20 07/15/17 15:20 80 154/85 07/15/17 14:42 81 170/84 07/15/17 14:13 83 172/87 07/15/17 13:56 82 173/99 07/15/17 13:41 93 H 169/89 07/15/17 13:26 78 159/82 07/15/17 13:12 80 157/79 07/15/17 12:56 84 166/86 07/15/17 12:17 81 156/82 07/15/17 12:03 83 162/79 07/15/17 11:49 82 155/76 07/15/17 11:32 83 171/103 07/15/17 11:20 84 99 07/15/17 11:15 85 99 07/15/17 11:10 88 100 07/15/17 11:09 86 164/95 07/15/17 11:02 85 161/91 07/15/17 11:00 98.1 F 18 07/15/17 10:54 89 159/98 07/15/17 10:49 96 H 162/98 Intake and Output 07/15/17 07/16/17 07/16/17 23:59 07:59 15:59 Intake Total 2200 460 Output Total 550 280 Balance 1650 180 Intake: IV 2200 Lactated Ringers 1,000 ml 1000 @ 2250 mls/hr IV PREOP ALEX Rx#:[id number] Intake, Free Water 460 Output: Urine 550 280 Indwelling Catheter 280 Other: Total, Output Amount 50 Estimated Blood Loss 800 - Exam Breasts: Present: normal, Cardiovascular: Present: Regular rate Lungs: Present: Clear to auscultation, Normal air movement Abdomen: Present: normal appearance, soft, distention (upper abdomen) Vulva: both: normal Uterus: Present: normal, firm, fundal height above umbilicus Extremities: Present: normal Deep Tendon Reflex Grade: Normal +2 Incision: Present: dry, dressed (rn to remove dressing, patient barely tolerated assessment) - Labs Labs: Abnormal lab results 07/15/17 07/15/17 07/16/17 Range/Units Unknown Unknown 05:20 RBC 3.52 L (3.65-5.03) M/mm3 Hgb 8.4 L (10.1-14.3) gm/dl Hct 24.9 L (30.3-42.9) % Magnesium (1.7-2.3) mg/dL Lactate Dehydrogenase 202 H (91-180) units/L 07/16/17 Range/Units 05:20 RBC (3.65-5.03) M/mm3 Hgb (10.1-14.3) gm/dl Hct (30.3-42.9) % Magnesium 5.40 H (1.7-2.3) mg/dL Lactate Dehydrogenase (91-180) units/L
[2017-07-16] MEDS: NORMODYNE PO SCH ×2 (10:14→22:16)
--- NOTE | 2017-07-16 12:22 | Progress Note ---
Subjective Date of service: 07/15/17 Principal diagnosis: postop day #1 s/p repeat c/s w/ BTL, pre-e, decreased urine output Interval history: Patient states no residual weakness, ambulating well, minimal pain, voiding, no anesthesia complications. Objective - Constitutional Vitals: Vital Signs - 12hr 07/16/17 07/16/17 07/16/17 02:25 04:00 06:00 Temperature 98.3 F 98 F 98.4 F Pulse Rate 78 83 78 Respiratory 18 16 18 Rate Blood Pressure Blood Pressure 123/78 132/75 113/69 [Right] O2 Sat by Pulse Oximetry 07/16/17 07/16/17 07/16/17 08:00 08:25 10:05 Temperature 98.3 F 98.1 F Pulse Rate 80 79 Respiratory 18 18 18 Rate Blood Pressure Blood Pressure 120/63 122/81 [Right] O2 Sat by Pulse 97 Oximetry 07/16/17 07/16/17 10:14 10:25 Temperature Pulse Rate 79 Respiratory 18 Rate Blood Pressure 122/81 Blood Pressure [Right] O2 Sat by Pulse Oximetry - Labs CBC & Chem 7: 07/16/17 05:20 07/15/17 Unknown Labs: Abnormal lab results 07/15/17 07/16/17 07/16/17 Range/Units Unknown 05:20 05:20 Hgb 8.4 L (10.1-14.3) gm/dl Hct 24.9 L (30.3-42.9) % Magnesium 5.40 H (1.7-2.3) mg/dL Lactate Dehydrogenase 202 H (91-180) units/L 07/16/17 Range/Units 11:30 Hgb (10.1-14.3) gm/dl Hct (30.3-42.9) % Magnesium 5.90 H (1.7-2.3) mg/dL Lactate Dehydrogenase (91-180) units/L
--- NOTE | 2017-07-16 18:53 | Event Note ---
Date: 07/16/17 Dressing removed this am with minimal bleeding from the skin edges noted. I examined pt this pm and she states she has just seen some staining on her gown or underwear from the healing incision. She is overall doing well. Incision does not appear infected but the bleeding appears to be from the pulling where the blayne are as the incision is healing. I d/w having a dressing or covering over the incision when she is at home and educated her on how to do the changes daily with just the abdominal padding and tape. All questions were addressed and answered. Pt does c/o sob with movement. Will obtain repeat h/h as well as cxr at this time. Breathing is not labored and breath sounds are normal at the bedside. If studies are negative will plan for d/c home in the am with staple removal in the office in one week.
[2017-07-16] MEDS: MOTRIN PO PRN (22:15)
[2017-07-16] MEDS: PERCOCET 5/325 PO PRN (22:16)
[2017-07-17] MEDS ORDERED: BOOSTRIX IM ONE (06:30)
[2017-07-17] MEDS: MOTRIN PO PRN ×2 (06:34→22:34)
[2017-07-17] MEDS: PERCOCET 5/325 PO PRN ×2 (06:34→22:34)
[2017-07-17] MEDS: NORMODYNE PO SCH ×2 (09:58→22:29)
--- NOTE | 2017-07-17 11:47 | Progress Note ---
Assessment and Plan - Patient Problems (1) delivery delivered Current Visit: Yes Status: Acute (2) Sterilization Current Visit: Yes Status: Acute (3) Anemia, blood loss Current Visit: Yes Status: Acute Plan to address problem: Hematocrit 24.9 to be TA positive, we'll observe, patient is completely asymptomatic (4) Preeclampsia, severe Current Visit: Yes Status: Acute Qualifiers: Trimester: third trimester Qualified Code(s): O14.13 - Severe pre-eclampsia , third trimester Plan to address problem: Labetalol 300 mg twice a day Subjective - Subjective Date of service: 07/17/17 Principal diagnosis: postop day #2 s/p repeat c/s w/ BTL, pre-e Patient reports: appetite normal, voiding normally, ambulating normally : doing well Objective - Vital Signs Latest vital signs: Vital Signs Temp Pulse Resp BP BP 07/17/17 09:58 76 133/67 07/17/17 08:40 97.9 F 76 18 133/76 07/17/17 04:30 98.6 F 66 18 111/79 07/17/17 00:00 98.6 F 78 18 110/72 07/16/17 22:16 68 127/64 07/16/17 22:15 20 07/16/17 20:30 18 07/16/17 20:00 98.6 F 66 16 125/71 07/16/17 18:30 18 07/16/17 17:45 97.8 F 79 18 114/70 07/16/17 16:35 18 07/16/17 15:20 18 07/16/17 14:00 18 07/16/17 12:20 18 07/16/17 12:00 98.5 F 78 131/82 Intake and Output 07/16/17 07/17/17 07/17/17 23:59 07:59 15:59 Intake Total 1480 300 360 Output Total 650 1400 Balance 830 -1100 360 Intake: Oral 880 360 Intake, Free Water 600 300 Output: Urine 650 1400 Indwelling Catheter 650 Void 1400 Other: Total, Intake Amount 200 360 Total, Output Amount 350 800 # Voids Void 1 # Bowel Movements 0 - Exam Narrative Exam: Doing well Breasts: Present: deferred Abdomen: Present: normal appearance Uterus: Present: normal, firm Extremities: Present: normal Incision: Present: normal, dry, intact - Labs Labs: Abnormal lab results 07/16/17 07/16/17 07/17/17 Range/Units 11:30 18:41 01:00 Magnesium 5.90 H 6.40 H 4.70 H (1.7-2.3) mg/dL
--- NOTE | 2017-07-18 06:28 | Discharge Summary ---
Providers - Providers Date of Admission: 07/15/17 14:19 Date of discharge: 07/18/17 (pt desires d/c. Will be pending approval by ) Attending physician: RUTHIE FLOWER 07/15/17 19:22 Consult to Night Supervisor [CONS] Routine Reason For Exam: Primary care physician: PATRICIA VENTURA Hospitalization Reason for admission: section Delivery: Procedure: bilateral tubal ligation, repeat low transverse Episiotomy: none Laceration: none Incision: normal, dry, intact, other (small amt of drainage noted on telfa; pt states it happens when she is OOB walking) complications: none Discharge diagnosis: delivery baby: male Hospital course: uncomplicated repeat section with tubal ligation Pt A&O X 3 No c/o voiced. "I want to go home." BP 140-130/80-60 FF below umb Lochia scant Incision as noted H&H 03/07 Pt w/o s/sx of anemia PO iron RX @ d/c Pt stable s/p section; chronic htn with PreE P: d/c today after consultation with Pt is aware she may stay one more day. CAll with RODAS, blurred vision, chest pain. Take labetalol as prescribed. RTO Saturday for BP check and son's circ. Condition at discharge: Good Disposition: - TO HOME OR SELFCARE - Discharge Diagnoses (1) delivery delivered Status: Acute Comment: RTO Saturday for postoperative visit (2) Preeclampsia, severe Status: Acute Qualifiers: Trimester: third trimester Qualified Code(s): O14.13 - Severe pre-eclampsia , third trimester Comment: RTO Saturday for BP check Continue Labetalol as prescribed. Plan - Discharge Medications Prescriptions: Ibuprofen [Motrin 800 MG tab] 800 mg PO TID PRN #30 tablet PRN Reason: Pain Lidocain2.5%/Prilocai2.5% [Emla] 5 gm TP ONCE #1 tube oxyCODONE /ACETAMINOPHEN [Percocet 5/325 mg] 1 - 2 tab PO Q4HR PRN #30 tablet PRN Reason: Pain - Provider Discharge Summary Activity: routine, no sex for 6 weeks, no heavy lifting 4 weeks, no strenuous exercise Diet: other (no salt) Instructions: routine Additional instructions: [] Smoking cessation referral if applicable(refer to patient education folder for contact #) [] Refer to [facility] Booklet Call your doctor immediately for: * Fever > 100.5 * Heavy vaginal bleeding ( >1 pad per hour) * Severe persistent headache * Shortness of breath * Reddened, hot, painful area to leg or breast * Drainage or odor from incision. * Keep incision clean and dry at all times and follow doctor's instructions regarding bathing/showering - Follow up plan Follow up: PATRICIA VENTURA MD [Primary Care Provider] - 07/22/17 (Congratulations Please call [phone] to schedule your postoperative visit / BP check Saturday and your son's circumcision. Bring the EMLA cream with you to his visit. You will be instructed on applying it. DO NOT use at home. Call with headache unrelieved with Tylenol, blurred vision, chest pain. Take medications as prescribed. Call with concerns.)
[2017-07-18] MEDS: PERCOCET 5/325 PO PRN (08:45)
[2017-07-18] MEDS: NORMODYNE PO SCH (09:00)
[2017-07-18] MEDS: MOTRIN PO PRN (11:50)
[2017-07-18 16:19] VITALS: BP 128/79
== END 2017-07-18 15:40 | disposition home or self-care (01) | DRG 765 ==
LOC: TRG 10:24 → APU 14:19 → OB 21:44
PROVIDERS: ADMIT Obstetrics & Gynecology; ATTEND Obstetrics & Gynecology
PROC: 10D00Z1 Extraction of Products of Conception, Low, Open Approach (ICD-10-PCS; principal; 2017-07-15)
PROC: 0UT70ZZ Resection of Bilateral Fallopian Tubes, Open Approach (ICD-10-PCS; 2017-07-15)
DX: O34.211 Maternal care for low transverse scar from previous cesarean delivery (principal); O14.13 Severe pre-eclampsia, third trimester; O60.14X0 Preterm labor third trimester with preterm delivery third trimester, not applicable or unspecified; C18.0 Malignant neoplasm of cecum; C78.7 Secondary malignant neoplasm of liver and intrahepatic bile duct; D62 Acute posthemorrhagic anemia; Z3A.36 36 weeks gestation of pregnancy; Z37.0 Single live birth; O99.52 Diseases of the respiratory system complicating childbirth; J45.909 Unspecified asthma, uncomplicated; O16.4 Unspecified maternal hypertension, complicating childbirth; O9A.12 Malignant neoplasm complicating childbirth; O90.81 Anemia of the puerperium; O34.13 Maternal care for benign tumor of corpus uteri, third trimester; D25.9 Leiomyoma of uterus, unspecified
CPT/HCPCS: 36415; 59025; 76815; 76819; 82565; 83615; 83735; 84450; 84460; 84550; 85014; 85018; 85027; 86592; 86850; 86900; 86901; 88302; 88307; 90471; 90715; 96360; 99211; C1765; G0463; J0360; J0690; J1885; J2250; J2270; J2405; J2590; J2765; J3010; J3475; J7120

== ENCOUNTER 2017-08-14 08:22 | Outpatient (CLI) | payer BC ==
[2017-08-14] MEDS ORDERED: XYLOCAINE TOPICAL 4% TP ONE (08:55)
== END 2017-08-14 08:23 | disposition home or self-care (01) ==
LOC: WOUND 08:22
PROVIDERS: ATTEND Surgery
DX: T81.89XA Other complications of procedures, not elsewhere classified, initial encounter (principal); J44.9 Chronic obstructive pulmonary disease, unspecified; I10 Essential (primary) hypertension; Z85.038 Personal history of other malignant neoplasm of large intestine; Z72.89 Other problems related to lifestyle; Y83.8 Other surgical procedures as the cause of abnormal reaction of the patient, or of later complication, without mention of misadventure at the time of the procedure; Y92.89 Other specified places as the place of occurrence of the external cause
CPT/HCPCS: 99215; G0463